=== PATIENT | male | born 1985 | race Two or more races ===

== ENCOUNTER 2016-07-23 09:30 | Emergency (ER) | payer OTHER ==
[2016-07-23 09:44] VITALS: BP 142/89; PULSE 76; RESP 16; TEMP 98.6; O2SAT 99
--- NOTE | 2016-07-23 10:27 | UCPHY ---
H & P Time Seen by Provider: 07/23/16 10:10 Patient Type: New HPI/ROS: This patient presents with a chief complaint of a laceration to his left index finger which occurred shortly before arrival when he cut with a knife while at work. He tells me that his last tetanus immunization was 2 or 3 months ago. Smoking Status: Former smoker Physical Exam: This is a well-developed well-nourished male who is in no acute distress. He is alert, lucid and has normal mental status. Examination left index finger reveals a laceration to the radial side of the distal phalanx which is a flap and is superficial. Constitutional: Initial Vital Signs Temperature (C) 37.0 C 07/23/16 09:41 Heart Rate 76 07/23/16 09:41 Respiratory Rate 16 07/23/16 09:41 Blood Pressure 142/89 H 07/23/16 09:41 O2 Sat (%) 99 07/23/16 09:41 O2 Delivery Mode Room Air Allergies/Adverse Reactions: No Known Allergies Allergy (Unverified 07/23/16 09:44) Home Medications: Medication Instructions Recorded NK [No Known Home Meds] 07/23/16 Medical Decision Making ED Course/Re-evaluation: The wound was thoroughly cleaned, Steri-Stripped and dressed. Differential Diagnosis: Because of the location and the superficial nature of this laceration I do not feel that sutures are necessary. The patient is happy with this plan of management. Departure - Departure Disposition: Home, Routine, Self-Care Clinical Impression: Finger laceration Qualifiers: Encounter type: initial encounter Qualifier Code: (S61.219A) Laceration without foreign body of unspecified finger without damage to nail, initial encounter Condition: Good Instructions: Finger Laceration (ED), Laceration Without Closure (ED), Steristrips (ED) Additional Instructions: Return for any problems specifically for infection. Avoid re-injury. Leave the dressing on for 2 or 3 days and then keep it covered with a Band-Aid changing it daily. If you notice spreading redness, swelling, increasing pain and tenderness or lee pus you should return immediately since these findings frequently indicate infection. It usually takes 3 days from the time of injury for an infection to begin. Adult Pain & Fever Control: We recommend Acetaminophen (Tylenol) and Ibuprofen (Motrin, Advil) for pain and fever control. When fever is high or pain severe, both drugs can be used at the same time, but at different intervals. Please note the time differences. Your dose is: Acetaminophen [650]mg every 4 to 6 hours ibuprofen [600]mg every [6] hours with food OR naproxen Sodium (Aleve) [440]mg every 12 hours. Note: do not take Acetaminophen with Hydrocodone (Vicodin, Lortab) or Oxycodone (Percocet). These medications also contain Acetaminophen. No more than 3000 mg of Acetaminophen should be taken in 24 hours (for an adult) . The maximal dose of ibuprofen that it is safe in a 24-hour period is 2400 mg. You may take 400 mg every 4 hours, 600 mg every 6 hours or 800 mg every 8 hours safely. - PQRS PQRS Measurement: Not applicable
[2016-07-23] MEDS ORDERED: LETS SOLN TOPICAL 1 EA SYR TP ONE ×2 (10:32→11:18)
== END 2016-07-23 11:10 | disposition home or self-care (01) ==
LOC: CED 09:30
DX: S61.211A Laceration without foreign body of left index finger without damage to nail, initial encounter (principal); Y99.0 Civilian activity done for income or pay; W26.0XXA Contact with knife, initial encounter; Z87.891 Personal history of nicotine dependence; Y92.59 Other trade areas as the place of occurrence of the external cause
CPT/HCPCS: G0463-PO